=== PATIENT | male | born 1945 | race Caucasian/White ===

== ENCOUNTER → 2016-06-17 09:54 | Day surgery (SDC) | payer MEDICARE ==
[~2016-06-17 09:54] MED LIST: Buffered Lidocaine 1% SYR 3ML* 3 ML/SYR SYRINGE INTRADERM ONE; Famotidine IV* 10 MG/ML 2 ML (20 mg) IV ONE; Famotidine IV* 10 MG/ML 2 ML (20 mg) ONE; KETAMINE HCL* 50 MG/ML 10 ML VIAL ONE; Lidocaine 2% PF * 5 ML VIAL ONE; Lidocaine 2% PF* 10 ML AMP ONE; Midazolam* 1 MG/ML 5 ML VIAL (5 MG) ONE; Morphine INJ* 2 MG/ML 1 ML CARPUJECT IV PRN; PROCHLORPERAZINE INJ 5 MG/ML 2 ML VIAL IV PRN; Propofol* 10 MG/ML 20 ML BTL IV PUSH ONE; ceFAZolin 2 GM PREMIX (*) 2 GM/50 ML BAG IVPB ONE; fentaNYL* 50 MCG/ML 2 ML VIAL (100 MCG VIAL) IV PRN; fentaNYL* 50 MCG/ML 2 ML VIAL (100 MCG VIAL) ONE; oxyCODONE/Acetamin 5/325 MG* TAB PO PRN
[2016-06-17 14:53] VITALS: BP 148/74
--- NOTE | 2016-06-17 19:06 | RAD ---
INDICATION: LEFT first metatarsal phalangeal joint fusion. COMPARISON: April 03, 2016 radiographs. TECHNIQUE: 2.3 seconds fluoroscopy. FINDINGS: Spot images document a lack screw as well as a dorsal cortical plate and multiple screws traversing the severely osteoarthritic first metatarsal phalangeal joint. IMPRESSION: Procedural fluoroscopy. CPT II Codes: 6045F
--- NOTE | 2016-06-18 12:04 | OP ---
DATE OF OPERATION: 06/17/16 - [facility] DATE OF : 47 ATTENDING SURGEON: Alfredito Hodge MD TILE DITCHER: Jolynn Tidwell PA-C ANESTHESIOLOGIST: Marcos Ramirez MD ANESTHESIA: MAC PRE-OPERATIVE DIAGNOSIS: Left hallux rigidus. POST-OPERATIVE DIAGNOSIS: Left hallux rigidus. OPERATIVE PROCEDURE: Left first MTP joint arthrodesis. DESCRIPTION OF PROCEDURE: The patient was taken to the operating room where longitudinal incision was performed in the left dorsal first MTP joint. We reflected the capsule mediolateral to allow visualization of the joint. Bursal capsulotomy was performed as well as excision of dorsal osteophytes. We then prepared the joint for arthrodesis using a 2.4-mm power brittney. Then, I pinned the joint obliquely with a 4.0 mm cannulated screw and fashioned the F3 plate to fit the dorsum of the joint with a combination of locking and nonlocking screws. X-ray intraoperatively showed satisfactory position of the hardware. We irrigated thoroughly, closing the capsule soft tissue with 2-0 Vicryl and nylon for the skin, and a compression dressing and plaster splint applied. [id number]/[facility] #: [id number] MTDD
== END | disposition home or self-care (01) ==
LOC: OR 09:54
PROVIDERS: ATTEND Orthopaedic Surgery
DX: M20.22 Hallux rigidus, left foot (principal); E11.8 Type 2 diabetes mellitus with unspecified complications; Z79.84 Long term (current) use of oral hypoglycemic drugs; I10 Essential (primary) hypertension; Z87.891 Personal history of nicotine dependence
CPT/HCPCS: 36415; 76000; 86803; C1713; C1776; J0690; J2001; J2250; J2704; J3010

== ENCOUNTER 2017-05-05 08:37 | Day surgery (SDC) | payer MEDICARE, OTHER ==
[~2017-05-05 08:37] MED LIST changes: +Buffered Lidocaine 0.9% SYRIN* 5 ML/SYR SYRINGE INTRADERM ONE; -Buffered Lidocaine 1% SYR 3ML* 3 ML/SYR SYRINGE INTRADERM ONE; -Famotidine IV* 10 MG/ML 2 ML (20 mg) ONE; -KETAMINE HCL* 50 MG/ML 10 ML VIAL ONE; -Lidocaine 2% PF * 5 ML VIAL ONE; -Lidocaine 2% PF* 10 ML AMP ONE; +Metoclopramide TAB* 10 MG PO ONE; -Midazolam* 1 MG/ML 5 ML VIAL (5 MG) ONE; -Morphine INJ* 2 MG/ML 1 ML CARPUJECT IV PRN; -PROCHLORPERAZINE INJ 5 MG/ML 2 ML VIAL IV PRN; -Propofol* 10 MG/ML 20 ML BTL IV PUSH ONE; -ceFAZolin 2 GM PREMIX (*) 2 GM/50 ML BAG IVPB ONE; -fentaNYL* 50 MCG/ML 2 ML VIAL (100 MCG VIAL) IV PRN; -fentaNYL* 50 MCG/ML 2 ML VIAL (100 MCG VIAL) ONE; -oxyCODONE/Acetamin 5/325 MG* TAB PO PRN
[2017-05-05] MEDS ORDERED: Famotidine IV* 10 MG/ML 2 ML (20 mg) ONE (08:47)
[2017-05-05] MEDS ORDERED: Metoclopramide TAB* 10 MG ONE (08:48)
[2017-05-05] MEDS ORDERED: ceFAZolin 2 GM PREMIX (*) 2 GM/50 ML BAG IVPB ONE (08:48)
[2017-05-05] MEDS ORDERED: Buffered Lidocaine 0.9% SYRIN* 5 ML/SYR SYRINGE ONE (08:48)
[2017-05-05] MEDS ORDERED: Ketorolac INJ* 30 MG/ML 1 ML VIAL ONE (10:02)
[2017-05-05] MEDS ORDERED: Propofol* 10 MG/ML 20 ML BTL IV PUSH ONE (10:02)
[2017-05-05] MEDS ORDERED: Lidocaine 2% PF * 5 ML VIAL ONE (10:02)
[2017-05-05] MEDS ORDERED: Dexamethasone IV* 4 MG/ML 1 ML (4 MG) ONE (10:02)
[2017-05-05] MEDS ORDERED: Ondansetron INJ* 2 MG/ML VIAL ONE (10:02)
[2017-05-05] MEDS ORDERED: KETAMINE HCL* 50 MG/ML 10 ML VIAL ONE (10:02)
[2017-05-05] MEDS ORDERED: Midazolam* 1 MG/ML 10 ML VIAL (10 MG) ONE (10:02)
[2017-05-05] MEDS ORDERED: fentaNYL* 50 MCG/ML 2 ML VIAL (100 MCG VIAL) ONE ×2 (10:02→12:24)
[2017-05-05] MEDS ORDERED: Cisatracurium* 2 MG/ML MDV 5 ML ONE (11:00)
[2017-05-05] MEDS ORDERED: Bupivacaine 0.5% SDV PF* 10-30ML VIAL ONE (11:40)
[2017-05-05] MEDS ORDERED: EPHEDrine (Pressors)* 50 MG/ML VIAL ONE (13:04)
[2017-05-05] MEDS ORDERED: Naloxone* 0.4 MG/ML 1 ML VIAL IV PRN (13:10)
[2017-05-05] MEDS ORDERED: fentaNYL* 50 MCG/ML 2 ML VIAL (100 MCG VIAL) IV PRN (13:10)
[2017-05-05] MEDS ORDERED: oxyCODONE/Acetamin 5/325 MG* TAB PO PRN (13:10)
[2017-05-05] MEDS ORDERED: Ondansetron INJ* 2 MG/ML VIAL IV PRN (13:10)
[2017-05-05 15:51] VITALS: BP 141/65
--- NOTE | 2017-05-06 13:25 | OP ---
DATE OF OPERATION: 05/05/17 - [facility] DATE OF : 47 ATTENDING SURGEON: Alfredito Hodge MD HOMICIDE [facility] COMMANDING OFFICER: DUKE Hirsch ANESTHESIOLOGIST: Vinnie Moran MD ANESTHESIA: General PRE-OP DIAGNOSES: Chronic tendinosis; partial tear, right tendo Achilles. POST-OP DIAGNOSES: Chronic tendinosis; partial tear, right tendo Achilles. OPERATIVE PROCEDURE: FHL transfer, reconstruction tendo Achilles, right side. DESCRIPTION OF PROCEDURE: The patient was prone with the thigh tourniquet, longitudinal incision was made along his medial border of the tendo Achilles. We incised around to the posterior aspect and the medial aspect. The FHL muscle belly was exposed. The FHL was released along the medial border of the sustentaculum and then we transferred this into a 6-mm drill hole at the posterior calcaneus, which had been freshened with a 15-blade to remove any prominence and then anchored with the 5.2 mm x 10 mm Bio-Tenodesis screw. We then debrided the anterior deep surface of the tendo Achilles removing some of the thick fibrous tissue and then whipstitched the FHL tendon into the underbelly of the Achilles tendon with a paired 2-0 Vicryl running sutures. We then irrigated and closed the subcu tissue with 2-0 Vicryl and merary for the skin and a compression dressing and a plaster splint applied. [id number]/[facility] #: [id number] MTDBeth
== END 2017-05-05 15:42 | disposition home or self-care (01) ==
LOC: OR 08:37
PROVIDERS: ATTEND Orthopaedic Surgery
DX: M76.61 Achilles tendinitis, right leg (principal); S86.011D Strain of right Achilles tendon, subsequent encounter; X58.XXXD Exposure to other specified factors, subsequent encounter; E11.9 Type 2 diabetes mellitus without complications; Z79.84 Long term (current) use of oral hypoglycemic drugs; Z87.891 Personal history of nicotine dependence; Y92.9 Unspecified place or not applicable
CPT/HCPCS: 88304; A9270-GY; C1713; C1776; J0690; J1100; J1885; J2250; J2405; J2704; J3010

== ENCOUNTER 2019-05-11 09:01 | Emergency (ER) | payer MEDICARE ==
[2019-05-11 09:23] VITALS: BP 146/69
--- NOTE | 2019-05-11 10:18 | UC ---
Hip/Pelvis Pain - HPI Summary HPI Summary: left hip pain x 3 days s/p fall on his left side, injury to his left hip / left elbow, hit the back of his head as well no loc, main concern is the left hip, pain is 3 out 10, works with walking, standing, better with rest, - History Of Current Complaint Chief Complaint: UCLowerExtremity Stated Complaint: L HIP/ELBOW PAIN/HEAD INJ Time Seen by Provider: 05/11/19 09:33 Hx Obtained From: Patient Mechanism Of Injury: s/p fall on ice Onset/Duration: Sudden Onset, Lasting Days - 3, Still Present Timing: Constant Severity Initially: Moderate Severity Currently: Moderate Pain Intensity: 3 Location: Discrete At: - left hip / left elbow Character Of Pain: Aching Aggravating Factor(s): Movement, Weight Bearing Alleviating Factor(s): Rest Associated Signs And Symptoms: Positive: Weakness. Negative: Swelling, Redness , Bruising, Fever, Dizziness, Syncope, Abdominal Pain, Knee Pain, Other - Allergies/Home Medications Allergies/Adverse Reactions: Allergies Allergy/AdvReac Type Severity Reaction Status Date / Time No Known Allergies Allergy Verified 05/11/19 09:17 PMH/Surg Hx/FS Hx/Imm Hx Endocrine History: Diabetes Cardiovascular History: Hypertension Respiratory History: Asthma - Surgical History Surgical History: Yes Surgery Procedure, Year, and Place: 2001 ABDOMINAL HERNIA REPAIR, [facility]. 2001 [id number] BOWEL (6 SURGERIES), [facility]. 2009 BILATERAL FOOT BUNIONECTOMY & PIN, [facility]. 04/2016 BILATERAL UPPER BLEPHAROPLASTY, [facility]. 2017 NECK SURGERY REPLACED DISCS - Family History Known Family History: Positive: Hypertension - Social History Alcohol Use: Occasionally Substance Use Type: None Smoking Status (MU): Former Smoker Amount Used/How Often: 1/2 PPD When Did the Patient Quit Smoking/Using Tobacco: 25 YEARS AGO Review of Systems All Other Systems Reviewed And Are Negative: Yes Constitutional: Positive: Negative Skin: Positive: Negative Eyes: Positive: Negative ENT: Positive: Negative Is Patient Immunocompromised?: No Physical Exam Triage Information Reviewed: Yes Appearance: Well-Appearing, No Pain Distress, Well-Nourished Vital Signs: Initial Vital Signs Temp 97.8 F 05/11/19 09:19 Pulse 64 05/11/19 09:19 Resp 16 05/11/19 09:19 BP 146/69 05/11/19 09:19 Pulse Ox 100 05/11/19 09:19 Vital Signs Reviewed: Yes Eye Exam: Normal Eyes: Positive: Conjunctiva Clear ENT: Positive: Normal ENT inspection, Hearing grossly normal, Pharynx normal Neck: Positive: Supple, Nontender, No Lymphadenopathy Respiratory: Positive: Chest non-tender, Lungs clear, Normal breath sounds Cardiovascular: Positive: RRR, No Murmur, Pulses Normal, Brisk Capillary Refill Abdominal Exam: Normal Abdomen Description: Positive: Nontender, Soft. Negative: CVA Tenderness (R), CVA Tenderness (L), Distended, Guarding Bowel Sounds: Positive: Present Musculoskeletal: Positive: Other: - left hip : no swelling , no bruising, diffuse tenderness, good ROM on flexion and extension left elbow, no swelling, no bruisig, mild diffuse tenderness, goot ROM Diagnostics - Radiology No standard instances Radiology Interpretation Completed By: Radiologist Summary of Radiographic Findings: xray report left hip : #. Good diagnostic quality radiographic exam of the LEFT hip without conspicuous fracture. As x- rays may be negative with nondisplaced hip fracture if there is persistent clinical concern MRI or in setting of contraindication to MRI or limitation in emergent access to Hip Injury Course/Dx - Differential Dx/Diagnosis Provider Diagnosis: Contusion of left hip, Contusion of left elbow Discharge ED - Sign-Out/Discharge Documenting (check all that apply): Patient Departure All imaging exams completed and their final reports reviewed: Yes - Discharge Plan Condition: Stable Disposition: HOME Patient Education Materials: Hip Contusion (ED) Referrals: No Primary Care Phys,NOPCP [Primary Care Provider] - 7 Days - Billing Disposition and Condition Condition: STABLE Disposition: Home
== END 2019-05-11 10:20 | disposition home or self-care (01) ==
LOC: UCCORT 09:01
DX: S70.02XA Contusion of left hip, initial encounter (principal); S50.02XA Contusion of left elbow, initial encounter; E11.9 Type 2 diabetes mellitus without complications; I10 Essential (primary) hypertension; J45.909 Unspecified asthma, uncomplicated; Z87.891 Personal history of nicotine dependence; W01.198A Fall on same level from slipping, tripping and stumbling with subsequent striking against other object, initial encounter; Y92.9 Unspecified place or not applicable
CPT/HCPCS: 99211; G0463